=== PATIENT | male | born 1975 | race Caucasian/White ===

== ENCOUNTER → 2017-07-04 | Outpatient (CLI) | payer BC ==
--- NOTE | 2017-07-05 07:58 | PAP/PSG TECHNICIAN REPORT ---
[facility] Escalation Engineer Polysomnogram Report Study name: None Report date: 07/05/2017 Study date: 07/04/2017 Referring Physician: DEANA WALDEN PA-C Name: CINDY SANTOS Interpreting Physician: Kip Collazo D.O. Date of : 1975 Escalation Engineer: Lulú Mario, PSGT. Sex: Male Age: 41 StudyType: PSG Weight: 205 lbs Height: 41 years, Height 5' 7" Neck Circum:17 inches BMI: 32.1 Medications: Omeprazole,Citaloram, Beet Root, Probiotic. Patient History 41 yr. old male in room 5, presents [facility] for a baseline sleep study. Patient has had sleep apnea in the past, but was unable to tolerate c-pap and the mask. He choose to lose weight which he felt helped at that time, he since has gained the weight back and feels the sleep apnea symptoms have come back, he is interested in having surgery if this test is positive for lorri.ESS= 7, Neck = 17 inches. Parameters Monitored NPSG: E1-M2, E2-M1, Fp1-M2, Fp2-M1, F3-M2, F4-M2, F4-M1, C3-M2, C4-M2, C4-M1, O1-M2, O2-M2, O2-M1, T3-M2, T4-M1, P3-M2, P4-M1, CHIN1, CHIN2, HR, EKG, Legs, PFLOW, SNOR, FLOW, CFLOW, Tidal Volume, THOR, ABDO, SpO2, PLTH, CPRESS, ETCO2 Wave, ETCO2, pH Sleep Architecture Sleep Stages Time at Lights Off 10:28:34 PM STAGES Time (min.) TST (%) Time at Lights On 5:27:34 AM Wake 161.5 -- Total Recording Time (TRT) 419.50 min. N1 29.0 11 Total Sleep Period (TSP) 353.5 min. N2 153.5 60 Total Sleep Time (TST) 257.0min. N3 0.0 0 Awake Time 162.5 min. REM 74.5 29 Wake after Sleep Onset 97.0 min. Sleep Efficiency (SE) 61 % Sleep Onset Latency (SORAYA) 65.0 min. Number of Stage 1 Shifts None Awakenings 21 Stage Changes 66 Number of REM periods 3 REM 74.5 29 REM Latency 138.5 min. NREM 182.5 71 Body Position Analysis Supine Right Left Side Prone Vertical Total Sleep Time (min.) 94.1 126.5 77.0 203.50 0.0 0.4 Total Sleep Time (%) 21% 49% 30% 79 0% N/A% Total Sleep Time REM (min.) 24.5 0.0 50.0 None 0.0 0.0 Total Sleep Time NREM (min.) 29.0 126.5 27.0 None 0.0 0.0 Intermittent Wake (min.) 40.6 54.3 66.2 None 0.0 0.4 Total Sleep Period (%) 26% None None None None None Arousals Myoclonus (PLM) * Events Count Index Events Count Index Spontaneous 17 4 Events Awake (PLMW) 1 0.4 Respiratory 41 9.6 Events Asleep w/ Arousal (PLMA) 7 1.6 PLM 6 2 Events Asleep w/o Arousal (PLMS) 100 23.3 Snoring 16 4 Total Asleep 107 25.0 Total 78 18 Total 108 15 Respiratory Analysis * CA OA MA CH H RERA Total Count 0 1 1 0 143 0 145 Index 0.0 0.2 0.2 0 33.4 0 33.9 Mean Duration 0.0 19.3 33.4 0.00 24.6 0.0 24.6 Longest Duration 0.0 19.3 33.4 0.00 33.4 0.0 51.7 Respiratory Event Summary Total Supine ~Supine Right Left Prone REM NREM Apneas Count 2 0 2 2 0 N/A 0 2 Index 0.5 0 1 0.9 0.0 N/A 0 1 Hypopneas (4% Desat) Count 143 35 108 57 51 N/A 45 98 Index 33.4 39.3 32 27.0 39.7 N/A 36.2 32.2 Apneas & All Hypopneas Count 145 35 110 59 51 N/A 45 100 Index 33.9 39 32 28 40 N/A 36.2 32.9 Respiratory Events (Captain Cannery Tender+All Hyp+RERA) Count 145 35 110 59 51 N/A 45 100 Index 33.9 39 32 28.0 39.7 N/A 36.2 32.9 Respiratory Related Arousal Count 41 35 32 21 11 N/A 11 30 Index 9.6 10 9 10 9 N/A 9 10 Snoring Analysis Supine Right Left Prone REM NREM Total Snore duration 44.1 min Snores count 292 975 323 N/A 303 1,287 1,590 Snore mean duration 1.7 Sec Snores index 327 462 252 N/A 244.0 423.1 371.2 TST with snoring (%) 17.2% Desaturation Event Summary: Minimum %SpO2 Event Count Mean/Min/Max Duration(sec.) Desaturation Index % Time In Bed > 90 154 27.9 / 5.8 / 60.0 28.7 77.9 86 - 90 13 17.5 / 5.8 / 32.5 11.6 16.2 81 - 85 1 14.5 / 14.5 / 14.5 3.5 4.2 76 - 80 0 N/A 0.0 1.3 71 - 75 0 N/A 0.0 0.4 66 - 70 0 N/A 0.0 0.0 61 - 65 0 N/A 0.0 0.0 56 - 60 0 N/A 0.0 0.0 51 - 55 0 N/A 0.0 0.0 < 50 0 N/A 0.0 0.0 Total REM NREM Awake <50% 0.0 min. 0.0 min. 0.0 min. 0.0 min. 51 - 60% 0.0 min. 0.0 min. 0.0 min. 0.0 min. 61 - 70% 0.1 min. 0.1 min. 0.0 min. 0.0 min. 71 - 80% 7.0 min. 2.9 min. 2.0 min. 2.1 min. 81 - 90% 84.3 min. 22.2 min. 36.5 min. 25.6 min. 91 - 100% 322.1 min. 48.2 min. 142.2 min. 131.7 min. Average 92 91 92 92 Minimum SpO2 68 68 73 76 Desaturation Event Index 23.1 33.0 39.1 1.1 # Desat. Events below 89% 123 33 90 0 Time(%) with Saturation below 89% 13.5 3.8 5.6 4.0 Time(min.) with Saturation below 89% 55.6 15.9 23.1 16.7 Time (mins) REM (mins) NREM (mins) % of TST SpO2 Below 90% 152 38 N114 19.2 SpO2 Below 88% 54 0 0 12 Heart Rate Analysis Min (bpm) Max (bpm) Average (bpm) Awake 60 127 71 NREM 60 83 70 REM 59 173 69 Overall 59 173 70 Supplemental O2 Values Minimum O2 level: None Value Start Time End Time Escalation Engineer Comments PSG Study slept in the right, left, and supine positions. No cardiac arrhythmia or PLM's noted. No bruxism noted. Snoring was noted and scored as a 3 on a scale of 1 through 5. (0=no snoring, 5=snoring loud enough to be heard through a closed door or down the jain way) Mr. Santos awoke to use the restroom zero times during the night. Mr. Santos stated, I did not sleep as well as I do when I am in my own bed. The final report will be interpreted and signed by a sleep physician. The completed physician report will then be placed in the patient medical record. Patient was very restless most of the study he would wake often and move from side to side. Moderate snoring was displayed as well as respiratory events..Patient stated that he is interested in having surgery for sleep apnea rather than c-pap. Therapy (cm H2O) 0 TIB (min.) 418.5 TST (min.) 257.0 Sleep Onset (min.) 65.0 REM Onset From Sleep (min.) 138.5 Sleep Efficiency % 61 Wakefulness (%) 39 Wakefulness (min.) 162.5 NREM 1 (%) 11 NREM 1 (min.) 29.0 NREM 2 (%) 60 NREM 2 (min.) 153.5 NREM 3 (%) 0 NREM 3 (min.) 0.0 REM (%) 29 REM (min.) 74.5 # Arousals 78 Arousal Index 18 # Snore 1,590 Snore Index 371.2 AHI 33.9 AHI Supine 39 AHI Non-Supine 32 NREM AHI 32.9 REM AHI 36.2 RDI 33.9 # Obstructive Apnea 1 # Central Apnea 0 # Mixed Apnea 1 # Hypopneas 143 RERAs 0 Total Respiratory Events 147 Time Below SpO2 89% (min.) 38.9 Mean NREM SpO2 (%) 92 Mean REM SpO2 (%) 91 Mean Sleep SpO2 (%) 92 Min NREM SpO2 (%) 73 Min REM SpO2 (%) 68 Position Supine (min.) 94.1 Position Non-supine (min.) 203.5 LM Index Sleep 25.0 LM Index NREM 16.8 LM Index REM 45.1 Mean Heart Rate (bpm) 70 Min Heart Rate (bpm) 59
--- NOTE | 2017-07-06 16:53 | Sleep Study ---
Sleep Study Report Date of Service: 07/04/2017 Sleep Study Report Clinical data: The patient is referred by Brii Grayson PA-C for a sleep study. He is a 41- year-old male who has a history of snoring and excessive daytime somnolence. In 2007 he had a sleep study done showing obstructive sleep apnea with an apnea- hypopnea index of 14. He had difficulty tolerating nasal CPAP. His Franklin score is 7 out of a possible 24. His BMI is elevated at 32.1. This was an in- lab diagnostic polysomnography. Sleep architecture: The total sleep period was 353.5 minutes. The total sleep time was 257 minutes. The sleep efficiency was moderately reduced to 61 percent. The sleep latency was prolonged at 65 minutes. Wake after sleep onset was prolonged to 97 minutes. The REM latency was prolonged to 138.5 minutes. There were 2 REM periods during the night. Sleep consisted of stage N1 11 percent, stage N2 60 percent, stage N3 0 percent, stage REM 29 percent. Arousal data: The patient had a total of 78 arousals including 17 spontaneous arousals, 41 respiratory arousals, 6 PLM arousals, and 16 snoring arousals. The arousal index was 18. PLM data: The patient had 107 periodic limb movements of sleep for a PLM index of 25. There were 7 arousals associated with limb movements for a PLM arousal index of 1.6. EKG: The underlying cardiac rhythm was normal sinus. The minimum heart rate was 59. The average heart rate was 70 beats per minute. No arrhythmia was noted. Respiratory data: The patient had a total of 145 respiratory events including 1 obstructive apnea , 1 mixed apnea, and 143 hypopneas. Hypopneas were scored according to the 4 percent desaturation rule. The longest apnea was 33.4 seconds. The mean duration of the hypopneas was 24.6 seconds. The apnea-hypopnea index was elevated at 33.9. This represents moderately severe obstructive sleep apnea. Oximetry data: The patient had an average saturation of 92 percent. The minimum saturation was 68 percent. There was a total of 55.6 minutes with saturations less than 89 percent. Music Researcher comments: The patient slept on the right, left, and supine positions. No cardiac arrhythmia noted. No bruxism noted. Snoring was noted and scored as a 3 on a scale of 1 through 5. The patient did not awaken to use the restroom during the nighttime. He stated that he did not sleep as well as he does in his own bed. The patient was very restless most of the study. He would awaken often and move from side to side. Moderate snoring was displayed as well as Respiratory events. The patient stated he is interested in having surgery for sleep apnea rather than CPAP. Impressions: 1. Obstructive sleep apnea-moderately severe Comments: The patient had a significant decrease in sleep efficiency. He had an increase in arousals. There was a modest number of limb movements but with few arousals. The majority of the events were hypopneas. At times there was profound oxygen desaturations associated with respiratory events. Recommendations: 1. Consideration is given to a trial of nasal CPAP or BiPAP. This would be the recommended choice in light of the severity of his apnea. 2. Alternatives to nasal CPAP or BiPAP could include treatment with an oral appliance or consideration for surgical procedures. 3. Weight loss is advised in light of the elevation of body mass index at 32.1. 4. It is suggested that if possible the patient avoid sleeping in the supine position. 5. The patient should follow up with Brii Grayson PA-C, his referring provider. Copies To 1: Kip Collazo DO; Ishan Kelly III, M.D.; Brii Grayson PA-C
== END | disposition home or self-care (01) ==
LOC: C.NEUR 20:00
PROVIDERS: ATTEND Physician Assistant
DX: G47.33 Obstructive sleep apnea (adult) (pediatric) (principal)